=== PATIENT | female | born 1975 | race American Indian/Alaskan Native ===

== ENCOUNTER 2016-06-26 14:33 | Outpatient (CLI) | payer OTHER ==
--- NOTE | 2016-06-26 15:25 | Mammography Report ---
Right mammogram: CC spot compression images obtained predominantly for an area of questionable new right asymmetry in the lateral right breast as seen on outside exam in 2016. The spot compression image demonstrates an area of mild architectural distortion which is unchanged from our prior study in May 2015. There is no new nodule identified. The lateral projection is unremarkable. Impression: Stable pattern. Recommendation: Annual mammogram followup. BI-RADS CATEGORY: 1 = Negative ACR BI-RADS MAMMOGRAPHIC CODES: 0 = Needs additional imaging evaluation; 1 = Negative; 2 = Benign; 3 = Probably benign; 4 = Suspicious; 5 = Malignant; 6 = Known biopsy-proven malignancy COMMENT: 1. Dense breast tissue, i.e., adenosis, fibrocystic changes, etc., may obscure an underlying neoplasm. 2. Approximately 10% of cancers are not detected with mammography. 3. A negative mammography report should not delay biopsy if a clinically suspicious mass is present.
== END 2016-06-26 14:34 | disposition home or self-care (01) ==
LOC: SPVWC 14:33
PROVIDERS: ATTEND Obstetrics & Gynecology
DX: R92.8 Other abnormal and inconclusive findings on diagnostic imaging of breast (principal)
CPT/HCPCS: G0206-RT

== ENCOUNTER 2017-11-19 09:54 | Day surgery (SDC) | payer OTHER ==
[~2017-11-19 09:54] MED LIST: NACL 0.9% 1000 ML 1,000 ML IV SCH
[2017-11-19] MEDS ORDERED: DIPRIVAN 10 MG/ML IV ONE (13:40)
[2017-11-19] MEDS ORDERED: WATER FOR IRRIG STERILE IR ONE (13:41)
--- NOTE | 2017-11-19 14:06 | Discharge Summary ---
Short Stay Discharge Plan Weight Bearing Status: Weight Bear as Tolerated Diet: regular
--- NOTE | 2017-11-19 14:06 | Anesthesia Consultation ---
Anesthesia Consult and Med Hx Date of service: 11/19/17 - Airway Anesthetic Teeth Evaluation: Good ROM Head & Neck: Adequate Mental/Hyoid Distance: Adequate Mallampati Class: Class II Intubation Access Assessment: Probably Good - Pulmonary Exam CTA: Yes - Cardiac Exam Cardiac Exam: RRR - Pre-Operative Health Status ASA Pre-Surgery Classification: ASA2 Proposed Anesthetic Plan: MAC - Pulmonary Hx Asthma: Yes - Gastrointestinal Hx Gastroesophageal Reflux Disease: Yes
--- NOTE | 2017-11-19 14:07 | Anesthesia Day of Surgery ---
Anesthesia Day of Surgery - Day of Surgery Patient Examined: Yes Patient H&P Reviewed: Yes Patient is NPO: Yes
--- NOTE | 2017-11-19 14:11 | Operative Report ---
Operative Report Operative Report: Date: 11/19/2017 Operative Report: Date of procedure: 11/19/2017 Procedure: Esophagogastroduodenoscopy with multiple mucosal biopsies. Attending physician: Alexei Thomas MD Head Resident: Alexei Thomas MD Indication: Patient is a 42 -year-old female who presented with a history of recurrent epigastric pain, heartburn, nausea and vomiting. 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 An upper endoscopy is done to assess patient, so that treatment may be directed based on the findings. Consent: Informed consent was obtained after advising the patient and family regarding nature of this procedure, its indications, potential benefits as well as possible complications including but not limited to bleeding perforation and adverse reaction to medication, infection as well as other cardiopulmonary complications. An informed written and verbal consent was then obtained after due opportunity was provided for questions and answers. Monitoring: Patient was monitored continuously with pulse oximetry and electrocardiographic recordings as well as blood pressure recordings. Vital signs remained stable throughout this procedure with no untoward events. Preoperative assessment: Patient was assessed immediately prior to this procedure for capacity to tolerate monitored anesthesia care and moderate sedation as well as general anesthesia. Patient's ASA classification is 3, Mallampati class is 2, Hyomental distance is 3. Instrument: Fixstarsn video endoscope Medications: Propofol given intravenously in divided doses. For details please refer to anesthesia records. Description of procedure: Patient was placed in the left lateral decubitus position after achieving sedation, the endoscope was introduced into the esophagus under direct vision. It was then advanced beyond the esophagus into the stomach and then beyond the stomach into the duodenum and to the second portion of the duodenum. It was subsequently withdrawn with careful inspection of all mucosal surfaces with the following findings. Findings: Patient had mild erosive esophagitis involving the distal esophagus. There was a small sliding hiatal hernia seen on entry into the stomach. Patient had a prominent hypervascular nodule seen at the gastroesophageal junction, this was biopsied. Patient is status post sleeve gastrectomy. The scars are well-healed. There was some mild narrowing in the transition to the distal aspect of the antrum, there however was no stricture seen and this area was amenable to air insufflation. There was mild erythema in the gastric antrum. Biopsies of the antrum were obtained for histopathology. The duodenum was normal to second portion. Impression: Mild erosive esophagitis. 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 Sliding hiatal hernia. Status post sleeve gastrectomy with well-healed scars. Mild antral erythema status post biopsies. Plan: Continue treatment with proton pump inhibitors. Follow pathology report. Direct additional treatment based on the pathology report. Patient will be observed clinically. Additional recommendations will be made follow-up.
[2017-11-19 14:55] VITALS: BP 152/90
== END 2017-11-19 09:55 | disposition home or self-care (01) ==
LOC: GIO 09:54
PROVIDERS: ATTEND Internal Medicine Gastroenterology
DX: K29.50 Unspecified chronic gastritis without bleeding (principal); K22.8 Other specified diseases of esophagus; K21.9 Gastro-esophageal reflux disease without esophagitis; J45.909 Unspecified asthma, uncomplicated; E03.9 Hypothyroidism, unspecified; Z98.84 Bariatric surgery status; Z90.710 Acquired absence of both cervix and uterus; Z98.890 Other specified postprocedural states
CPT/HCPCS: 43239; 88305; 88342; J7030

== ENCOUNTER 2018-01-31 15:31 | Outpatient (CLI) | payer OTHER ==
--- NOTE | 2018-01-31 16:28 | Mammography Report ---
BILATERAL DIGITAL AUGMENTED DIAGNOSTIC MAMMOGRAM WITH CAD: 01/31/18 15:31:00 CLINICAL: Left palpable breast lump. However, the patient scheduled herself for a screening mammogram. COMPARISON:05/20/15 FINDINGS: Bilateral MLO and CC views with and without implant displacement demonstrate heterogeneously dense breasts may obscure small masses. No mass, architectural distortion or suspicious calcifications. Intact subpectoral implants. No mammographic finding at a left upper outer periareolar palpable marker. A IMPRESSION: Negative mammogram. However, additional imaging required. Recommend return for a targeted left breast ultrasound. BI-RADS CATEGORY: 0--Needs Additional Imaging
== END 2018-01-31 15:32 | disposition home or self-care (01) ==
LOC: SPVWC 15:31
PROVIDERS: ATTEND Obstetrics & Gynecology
DX: R92.8 Other abnormal and inconclusive findings on diagnostic imaging of breast (principal); K21.9 Gastro-esophageal reflux disease without esophagitis; J45.909 Unspecified asthma, uncomplicated; Z90.710 Acquired absence of both cervix and uterus
CPT/HCPCS: 77066

== ENCOUNTER 2018-02-05 10:28 | Outpatient (CLI) | payer OTHER ==
--- NOTE | 2018-02-05 12:29 | Ultrasound Report ---
Left breast ultrasound: Ultrasound imaging is performed over the area identified by the patient is being palpable although it is clear that the patient does not feel the lump. Apparently it was felt by her and possibly her examining physician. Imaging was performed in the region described by the patient as having a palpable finding. It is of note however our recent mammogram a marker was placed on the medial breast. Imaging of the breast from one to 4:00 failed to identify any finding in the area of concern. Impression: Clinical followup. Any additional evaluation should be based on your concern. Annual mammogram followup unless otherwise indicated.
== END 2018-02-05 10:29 | disposition home or self-care (01) ==
LOC: SPVWC 10:28
PROVIDERS: ATTEND Obstetrics & Gynecology
DX: N63.23 Unspecified lump in the left breast, lower outer quadrant (principal); J45.909 Unspecified asthma, uncomplicated; K21.9 Gastro-esophageal reflux disease without esophagitis; Z90.710 Acquired absence of both cervix and uterus